=== PATIENT | male | born 1945 | race Caucasian/White ===

== ENCOUNTER 2020-02-08 22:43 | Emergency (ER) | payer MEDICARE, SELFPAY ==
[2020-02-08 22:44] VITALS: BP 107/89; PULSE 123; RESP 18; TEMP 36.4; O2SAT 95; BMI 31.0
--- NOTE | 2020-02-08 22:56 | RAD_ITS ---
STUDY: X-RAY CHEST REASON FOR EXAM: Male, 74 years old. Defibrillator has gone off multiple times in past 24 hours. TECHNIQUE: Single AP portable view of the chest. COMPARISON: None. FINDINGS: Lungs well-expanded. There is minimal chronic interstitial coarsening without acute infiltrate or mass. There is no demonstrated pleural abnormality. The heart is enlarged. There is a left-sided triple lead cardiac pacemaker/defibrillator. Normal mediastinum and juan pablo. Normal visualized pulmonary arteries. Normal visualized aortic arch and descending thoracic aorta. There are diffuse degenerative changes of the visualized thoracic spine. Normal visualized ribs, clavicles, and shoulders. There is no demonstrated abnormality of the visualized soft tissue structures of the upper abdomen. RAD/Chest 1 View (Portable) IMPRESSION: Cardiomegaly with cardiac pacemaker/ICD. There is no acute pulmonary disease. Electronically Signed: Henri Ceja DO at 23:40 EDT Tel [phone], Service support ,
--- NOTE | 2020-02-08 22:56 | EKG12_ITS ---
Test Reason : DYSRHYTHMIA Blood Pressure : / mmHG Vent. Rate : 123 BPM Atrial Rate : 120 BPM P-R Int : 000 ms QRS Dur : 148 ms QT Int : 352 ms P-R-T Axes : 000 -77 126 degrees QTc Int : 503 ms Wide QRS tachycardia , probably Sinus Left axis deviation Non-specific intra-ventricular conduction block Anterolateral infarct , age undetermined Abnormal ECG Confirmed by AMARA SHAH, GINETTE ([id number]), publication editor JAMIE SHIPMAN ([id number]) on 02/15/2020 9:49:47 AM Referred By: DC Confirmed By:KRIS MALONEY MD
[2020-02-08 23:25] LABS: Absolute Lymphocyte Count 1.28 X10^3/uL (0.83-4.51); Absolute Neutrophil Count 8.1 X10^3/uL (2.0-7.7); Basophil# 0.06 X10^3/uL; Basophil% 0.6 % (0-1); Eosinophil# 0.24 X10^3/uL; Eosinophils% 2.2 % (0-5); Hematocrit 43.7 % (40-54); Hemoglobin 14.4 g/dL (13.0-16.5); Lymphocyte # 1.28 X10^3/ul (4.0); Lymphocyte % 11.9 % (19-41); Mean Corpuscular Hgb 32.7 pg (27.0-32.0); Mean Corpuscular Volume 99.1 fL (80-94); Mean Platelet Vol. 12.9 fl (6.2-12.0); Monocyte# 0.98 X10^3/uL; Monocyte% 9.1 % (0-10); NRBC Flagged by Analyzer 0 % (0-5); Neutrophil # 8.13 X10^3/uL (2.7-7.7); Neutrophil % 75.4 % (47-70); Platelet Count 142 K/mm3 (150-450); RBC Distribution Width CV 13.3 % (11.6-14.6); RBC Distribution Width SD 47.8 fl (35.1-43.9); Red Blood Count 4.41 M/mm3 (4.6-6.2); White Blood Count 10.8 K/mm3 (4.4-11.0)
[2020-02-08 23:28] LABS: Prothrombin Time (Protime)PT. 13.1 SECONDS (11.7-14.9)
[2020-02-08 23:29] LABS: Partial Thromboplast Time 33.1 Seconds (24.1-36.2)
[2020-02-08] MEDS: Aspirin 81 MG TAB.CHEW 324 MG PO (23:31)
[2020-02-08 23:38] LABS: Anion Gap 8 (5-15); BUN 29 mg/dL (7-18); BUN/Creat Ratio 11.7 RATIO (10-20); Calcium,Total 8.7 mg/dL (8.5-10.1); Chloride 114 mmol/L (98-107); Creatinine, Serum 2.47 mg/dL (0.70-1.30); EST Glomerular Filtration Rate 27 mL/min (>60); Est Glom Filt Rate - Afr Amer 33 mL/min (>60); Estimated Creatinine Clearance 25.77 ml/min; Glucose 109 mg/dL (74-106); Magnesium 2.2 mg/dL (1.6-2.6); Potassium 4.6 mmol/L (3.5-5.1); Sodium Level 143 mmol/L (136-145)
--- NOTE | 2020-02-08 23:39 | ED.VISSUMM ---
- ER Visit Summary Date of Service: 02/08/20 Chief Complaint: Defibrillator fired History of Present Illness: The patient is a 74 M with a [employer] defibrillator that was placed at the [facility] by Dr. Rincon remotely. It fired at least twice today. The report from his said that at 1214am he had VT detection. ATP was delivered twice without success and then 1 shock was delivered with successful 3 sinus beats. He had V. tach after that for 34 minutes, it did not convert but his rate slowed down and then he self converted at 12:48 AM. He had another V. tach detection at 6:04 AM which converted with ATP. Patient was not having any symptoms when he spoke to his doctor. He has been compliant with his medications. He had a second defibrillation this evening while at rest. He takes carvedilol 6.25 mg, lisinopril 5 mg, pravastatin, Cialis, spironolactone, bupropion. Physical Examination: Afebrile vital signs unremarkable except for heart rate of 123. Alert and oriented. No acute distress. Skin appears normal. Heart is regular but tachycardic. Test Results: EKG showed paced rhythm at a rate of 123. Labs and chest x-ray pending. Emergency Department Course and Treatment: Patient was placed on a monitor. He had runs of VT, but on my repeat evaluation he had a rate of 75. Defibrillator was interrogated. He has had multiple issues from February 04 through February 07. His rates have been in the 120s to 140s. In his zone 1 which is a rate less than 127 he is monitored. At a rate of 136 he will get antitachycardia pacing. If that fails he is defibrillated. He has had 11 episodes of antitachycardia pacing today as well as a 30 J defibrillation. He had one defibrillation yesterday as well. I contacted EP at the [facility] for further care. We reviewed all results, troponin, interrogation. Patient did not want to be admitted. EP advised increasing carvedilol to 0.5 mg twice a day and call the office in the morning. Return for repeat defibrillation as you will need to be admitted. Treatment Plan: As above Disposition: Discharge Impression: V. tach This note was generated with [employer] software. It may contain incorrect words, spelling, and punctuation that were not noted in review of the chart prior to signing ED Disposition - Plan for ED Patient: Referrals: Ernesto Santiago MD [Primary Care Provider] -
[2020-02-09 01:24] VITALS: BP 114/78; PULSE 65; RESP 19; O2SAT 96
--- NOTE | 2020-02-09 01:26 | ED.DEP ---
ED Disposition - Plan for ED Patient: Instructions: ED Chest Pain Atypical Unkn Cause Additional Instructions: Increase your carvedilol to 12.5 mg twice a day. Call your chief scientific officer tomorrow morning for follow-up appointment. Return right away for any problems or repeat defibrillation.
[2020-02-09 01:30] VITALS: BP 114/78; PULSE 61; RESP 18; O2SAT 97
== END 2020-02-09 01:37 | disposition home or self-care (01) ==
LOC: ED 23:30
PROVIDERS: Emergency Provider Emergency Medicine
DX: I47.2 Ventricular tachycardia (principal); Z95.0 Presence of cardiac pacemaker; E78.00 Pure hypercholesterolemia, unspecified; F17.210 Nicotine dependence, cigarettes, uncomplicated; I51.7 Cardiomegaly
CPT/HCPCS: 71045; 80048; 83735; 84484; 85025; 85610; 85730; 93005; 99285